=== PATIENT | male | born 2000 | race African-American/Black ===

== ENCOUNTER 2020-11-05 16:57 | Emergency (ER) | payer SELFPAY ==
--- NOTE | ~2020-11-05 | CT_ITS ---
EXAMINATION: CT cervical spine wo con DATE: 11/05/2020 18:19 INDICATION: Neck injury TECHNIQUE: Computed tomography (CT) of the cervical spine was performed without intravenous contrast. Automated exposure control and iterative reconstruction technique were employed. The dose-length pro duct was 392.23 mGy-cm. COMPARISON: None FINDINGS: Straightening of the normal cervical lordosis. No spondylolisthesis or facet subluxation. Vertebral b esequeil and disc heights are normal. No fracture. Cervical uncovertebral and facet joints are normal. Kirstin tral canal and neural foramina are patent throughout. Cervical soft tissues are unremarkable. Visuali zed airway and apices of lungs are clear. IMPRESSION: 1. Likely positional straightening of the normal cervical lordosis. Otherwise unremarkable cervical s pine CT. Reviewed, dictated and finalized at location A. TECHNICIAN IMPRESSION: 1. Likely positional straightening of the normal cervical lordosis. Otherwise u nremarkable cervical spine CT.
--- NOTE | ~2020-11-05 | CT_ITS ---
EXAMINATION: CT brain wo con DATE: 11/05/2020 18:19 INDICATION: Closed head injury presenting with headache and dizziness. TECHNIQUE: Computed tomography (CT) of the head was performed without intravenous contrast. Sagittal and coronal reconstructions were performed. The mA was adjusted according to patient size. Iterative reconstruction technique was employed. The dose-length product was 605.33 mGy-cm. COMPARISON: None FINDINGS: No fracture. No acute intracranial hemorrhage, acute infarction or abnormal extra axial fluid collect ion. Ventricles are normal and symmetric. No mass/mass effect. The orbits, paranasal sinuses and mast oid air cells are normal. IMPRESSION: 1. Normal head CT. Reviewed, dictated and finalized at location A. PRESS TENDER IMPRESSION: 1. Normal head CT.
[2020-11-05 17:00] VITALS: BP 166/71; PULSE 98; RESP 19; TEMP 36.2; O2SAT 95
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
== END 2020-11-05 19:28 | disposition home or self-care (01) ==
PROVIDERS: Emergency Provider Family Medicine
DX: F07.81 Postconcussional syndrome (principal); S16.1XXA Strain of muscle, fascia and tendon at neck level, initial encounter; W22.01XA Walked into wall, initial encounter
CPT/HCPCS: 70450; 72125; 99284